=== PATIENT | male | born 1940 | race Caucasian/White ===

== ENCOUNTER 2021-11-05 08:44 | Inpatient (IN) ==
[2021-11-05 09:09] LABS: Basophils % 0.7 % (0.0-0.8); Eosinophils # 0.1 10*3/uL (0.0-0.87); Eosinophils % 0.8 % (0.00-10.9); Hematocrit 40.3 VOL% (42.0-52.0); Hemoglobin 13.5 GM/DL (14.0-18.0); Immature Granulocytes % 0.5 %; Immature Granulocytes Absolute 0.03 #; Lymphocytes # 1.1 10*3/uL (1.4-4.0); Lymphocytes % 18.6 % (21.2-54.2); Mean Corpuscular HGB Conc 33.5 GM/DL (32-36); Mean Corpuscular Volume 93.9 FL (87-102); Mean Platelet Volume 10.4 FL (9.6-12.0); Monocytes % 6.8 % (1.7-12.7); Neutrophils % 72.6 % (38.7-73.9); Platelet Count 165 T/CUMM (130-400); Red Blood Count 4.29 MC/CUMM (3.8-5.5); Red Cell Distribution Width 12.3 % (9.3-17.3); White Blood Count 6.1 T/CUMM (4-12)
[2021-11-05] MEDS ORDERED: ENOXAPARIN 100 MG/ML SYRINGE SUBCUT STA (09:11)
[2021-11-05] MEDS ORDERED: ASPIRIN 325 MG TABLET PO STA (09:11)
[2021-11-05 09:33] LABS: Albumin 3.7 G/DL (3.4-5.0); Bilirubin,Total 0.6 MG/DL (0.20-1.00); Calcium 9.5 MG/DL (8.5-10.1); Osmolality,Calculated 269.1 MOS/KG (273-304); Potassium 4.2 MMOL/L (3.5-5.1); Total Protein 7.3 G/DL (6.4-8.2)
[2021-11-05] MEDS ORDERED: ONDANSETRON 4 MG/2 ML VIAL IV PRN (13:06)
[2021-11-05] MEDS ORDERED: GLUCAGON 1 MG VIAL IM PRN (13:06)
[2021-11-05] MEDS ORDERED: DEXTROSE 50% 25 GM/50 ML SYRINGE IV PRN (13:06)
[2021-11-05] MEDS ORDERED: HEPARIN/NACL 0.9% 2 UNITS/ML 2,000 UNIT/1,000 ML BAG IV ONE (13:39)
[2021-11-05] MEDS ORDERED: LIDOCAINE 1% 20 ML VIAL ONE (13:39)
[2021-11-05] MEDS ORDERED: diphenhydrAMINE CAP 25 MG CAPSULE PO ONE (13:41)
[2021-11-05] MEDS ORDERED: DIAZEPAM 5 MG TABLET PO ONE (13:41)
[2021-11-05] MEDS ORDERED: SODIUM CHLORIDE 0.9% 1,000 ML IV STA (13:50)
[2021-11-05] MEDS ORDERED: HYDROmorphone 2 MG/1 ML VIAL ONE (14:00)
[2021-11-05] MEDS ORDERED: MIDAZOLAM 2 MG/2 ML VIAL ONE (14:00)
[2021-11-05] MEDS ORDERED: diphenhydrAMINE 50 MG/1 ML VIAL ONE (14:32)
[2021-11-05] MEDS ORDERED: NITROGLYCERIN DRIP 50 MG/250 ML BOTTLE IV ONE (14:55)
[2021-11-05] MEDS ORDERED: TICAGRELOR 90 MG TABLET ONE (15:06)
[2021-11-05] MEDS ORDERED: NITROGLYCERIN SL 0.4 MG TABLET SL PRN (15:17)
[2021-11-05] MEDS ORDERED: SODIUM CHLORIDE 0.9% 1,000 ML IV SCH (15:30)
[2021-11-05] MEDS: SODIUM CHLORIDE 0.45% 1,000 ML IV SCH ×2 (15:46→22:32)
[2021-11-05] MEDS: ROSUVASTATIN 20 MG TABLET PO SCH (17:44)
[2021-11-05] MEDS: TICAGRELOR 90 MG TABLET PO SCH (20:35)
[2021-11-05] MEDS ORDERED: DOXAZOSIN 4 MG TABLET PO SCH (21:00)
[2021-11-06] MEDS: SODIUM CHLORIDE 0.45% 1,000 ML IV SCH ×2 (01:43→06:26)
[2021-11-06 04:39] LABS: Basophils % 0.4 % (0.0-0.8); Eosinophils % 0.2 % (0.00-10.9); Hemoglobin 11.6 GM/DL (14.0-18.0); Immature Granulocytes % 0.5 %; Immature Granulocytes Absolute 0.04 #; Lymphocytes # 1.1 10*3/uL (1.4-4.0); Lymphocytes % 12.8 % (21.2-54.2); Mean Corpuscular HGB Conc 33.1 GM/DL (32-36); Mean Corpuscular Volume 93.8 FL (87-102); Mean Platelet Volume 10.6 FL (9.6-12.0); Monocytes % 9.8 % (1.7-12.7); Neutrophils % 76.3 % (38.7-73.9); Platelet Count 147 T/CUMM (130-400); Red Blood Count 3.73 MC/CUMM (3.8-5.5); Red Cell Distribution Width 12.2 % (9.3-17.3); White Blood Count 8.3 T/CUMM (4-12)
[2021-11-06 05:03] LABS: Calcium 9.2 MG/DL (8.5-10.1); Osmolality,Calculated 275.7 MOS/KG (273-304); Potassium 3.8 MMOL/L (3.5-5.1)
[2021-11-06 05:04] LABS: Albumin 3.2 G/DL (3.4-5.0); Bilirubin,Total 1.3 MG/DL (0.20-1.00); Calcium 8.8 MG/DL (8.5-10.1); Osmolality,Calculated 280.3 MOS/KG (273-304); Potassium 3.9 MMOL/L (3.5-5.1); Total Protein 6.6 G/DL (6.4-8.2)
[2021-11-06 05:06] LABS: Risk Ratio 2.87; VLDL Cholesterol 19.6 MG/DL
[2021-11-06] MEDS: ASPIRIN EC 81 MG TABLET PO SCH (08:15)
[2021-11-06] MEDS: ROSUVASTATIN 20 MG TABLET PO SCH (08:15)
[2021-11-06] MEDS: METOPROLOL SUCCINATE XL 50 MG TABLET PO SCH (08:15)
[2021-11-06] MEDS: PANTOPRAZOLE 40 MG TABLET PO SCH (08:16)
[2021-11-06] MEDS: TICAGRELOR 90 MG TABLET PO SCH ×2 (08:16→20:46)
[2021-11-07 05:06] LABS: Basophils % 0.2 % (0.0-0.8); Hematocrit 31.8 VOL% (42.0-52.0); Hemoglobin 10.8 GM/DL (14.0-18.0); Immature Granulocytes % 0.3 %; Immature Granulocytes Absolute 0.02 #; Lymphocytes # 0.4 10*3/uL (1.4-4.0); Lymphocytes % 6.4 % (21.2-54.2); Mean Corpuscular Volume 93.8 FL (87-102); Mean Platelet Volume 11.3 FL (9.6-12.0); Monocytes % 15.6 % (1.7-12.7); Neutrophils % 77.5 % (38.7-73.9); Platelet Count 114 T/CUMM (130-400); Red Blood Count 3.39 MC/CUMM (3.8-5.5); Red Cell Distribution Width 12.4 % (9.3-17.3); White Blood Count 6.1 T/CUMM (4-12)
[2021-11-07 05:33] LABS: Calcium 8.7 MG/DL (8.5-10.1); Osmolality,Calculated 272.8 MOS/KG (273-304); Potassium 3.7 MMOL/L (3.5-5.1)
[2021-11-07 05:40] LABS: Lymphocytes 4 % (20-55); Microcytosis 1+; Segmented Neutrophils 89 % (50-85); Total Cells Counted 100
[2021-11-07 05:41] LABS: Ovalocytes Few; Platelet Estimate Decreased
[2021-11-07] MEDS ORDERED: CLOPIDOGREL 300 MG TABLET PO ONE (06:47)
[2021-11-07 08:04] VITALS: BP 105/59
[2021-11-07] MEDS ORDERED: CLOPIDOGREL 75 MG TABLET PO SCH (09:00)
[2021-11-07] MEDS ORDERED: VALSARTAN 80 MG TABLET PO SCH (09:00)
[2021-11-07] MEDS: ASPIRIN EC 81 MG TABLET PO SCH (10:12)
[2021-11-07] MEDS: PANTOPRAZOLE 40 MG TABLET PO SCH (10:13)
[2021-11-07] MEDS: ROSUVASTATIN 20 MG TABLET PO SCH (10:13)
[2021-11-07] MEDS: METOPROLOL SUCCINATE XL 50 MG TABLET PO SCH (10:13)
[2021-11-07 10:29] LABS: Bilirubin,Urine Negative (Negative); Blood, Urine Negative (Negative); Glucose,Urine (UA) Negative (Negative); Ketones,Urine 5 mg/dL (Negative); Mucus,Urine Occasional /LPF (Occasional); Nitrite,Urine Negative (Negative); Protein,Urine 30 MG/DL; RBC,Urine 3 /HPF (0-4); Urine Appearance CLEAR (Clear); Urine Color Yellow (Yellow); Urine Specific Gravity 1.021 (1.001-1.035); Urine Urobilinogen < 2.0 EU/DL (<2.0)
== END 2021-11-07 11:32 | disposition home or self-care (01) | DRG 247 ==
LOC: N.EDINP 08:44 → N.ED 08:44 → N.TELEN 13:45 → SUATTDRO 11-06 09:10
PROVIDERS: ADMIT Internal Medicine Geriatric Medicine; ATTEND Internal Medicine Cardiovascular Disease